=== PATIENT | male | born 1995 | race Caucasian/White ===

== ENCOUNTER 2020-02-17 14:33 | Emergency (ER) | payer SELFPAY ==
[~2020-02-17] VITALS: Ht 188 cm; Wt 79.4 kg
[~2020-02-17 14:33] MED LIST: HYDROCO/APAP TAB 10-325MG; HYDROCODON-ACETAMINOPHN 10-325
--- NOTE | 2020-02-17 14:33 | NUR ---
Pt called to triage pt not in waiting room
[2020-02-17 15:25] VITALS: BP 134/77
== END 2020-02-17 16:50 | disposition home or self-care (01) ==
LOC: ER 14:34
DX: S92.421A Displaced fracture of distal phalanx of right great toe, initial encounter for closed fracture (principal); W18.39XA Other fall on same level, initial encounter; Y93.89 Activity, other specified; Y92.89 Other specified places as the place of occurrence of the external cause; Y99.8 Other external cause status
CPT/HCPCS: 73630-TC

== ENCOUNTER 2021-01-17 17:47 | Emergency (ER) | payer BC ==
[~2021-01-17] VITALS: Ht 188 cm; Wt 68.0 kg
--- NOTE | 2021-01-17 18:00 | NUR ---
CALLED TO TRIAGE,NO ANSWER
--- NOTE | 2021-01-17 18:07 | NUR ---
CALLED TO TRIAGE,NO ANSWER
[2021-01-17 18:17] VITALS: BP 114/73
--- NOTE | 2021-01-17 18:25 | NUR ---
PATIENT CAME BACK TO [facility]
--- NOTE | 2021-01-17 18:37 | NUR ---
PATIENT SEEN AND EVALUATED BY DR. ARMSTRONG. Patient discharged to home in stable condition. Written and verbal after care instructions given. Patient verbalizes understanding of instruction.
== END 2021-01-17 18:37 | disposition home or self-care (01) ==
LOC: ER 17:51
DX: R46.1 Bizarre personal appearance (principal)

== ENCOUNTER 2025-03-25 19:45 | Emergency (ER) | payer MEDICAID, OTHER ==
[~2025-03-25] VITALS: Ht 188 cm; Wt 77.1 kg
[~2025-03-25 19:45] MED LIST changes: +LORA-259 PO
[2025-03-25 19:52] VITALS: TEMP 98
[2025-03-25] MEDS ORDERED: CELLULOSE,OXIDIZED 1 PKT EACH MC ONE (20:00)
[2025-03-25] MEDS: MUPIROCIN OINT 2% 22 GM TUBE TP ONE (20:08)
[2025-03-25] MEDS ORDERED: MUPIROCIN OINT 2% 22 GM TUBE ONE (20:08)
[2025-03-25] MEDS ORDERED: TDAP [DIPH/PERTUSSIS/TET] 0.5 ML VIAL IM ONE (20:08)
[2025-03-25 20:10] VITALS: BP 105/80; O2SAT 96
[2025-03-25] MEDS: TDAP [DIPH/PERTUSSIS/TET] 0.5 ML VIAL IM ONE (20:10)
[2025-03-25] MEDS ORDERED: MUPI15CR TP (20:19)
== END 2025-03-25 20:22 | disposition home or self-care (01) ==
LOC: ER 19:54
DX: S61.211A Laceration without foreign body of left index finger without damage to nail, initial encounter (principal); F17.200 Nicotine dependence, unspecified, uncomplicated; W26.0XXA Contact with knife, initial encounter; Y93.G3 Activity, cooking and baking; Y92.098 Other place in other non-institutional residence as the place of occurrence of the external cause; Y99.8 Other external cause status
CPT/HCPCS: 90715